=== PATIENT | male | born 1930 | race Two or more races ===

== ENCOUNTER 2016-03-12 06:18 | Inpatient (IN) | payer MEDICARE ==
[~2016-03-12] VITALS: Ht 172.7 cm; Wt 75.4 kg
[~2016-03-12 06:18] MED LIST: ACID1TAB12 PO; AMLO5TAB2 PO; BUPR300T54 PO; DABI150C PO; FLUO-119 PO; FURO20TA4 PO; MACULAR PROTECT PO; METO2.5T2 PO; METO25TA6 PO; POTA20TA83 PO
[2016-03-12] MEDS ORDERED: NITROGLYCERIN PACKET 1 GM PACKET ONE (06:27)
[2016-03-12] MEDS ORDERED: FUROSEMIDE 40 MG/4 ML VIAL ONE (06:27)
[2016-03-12] MEDS ORDERED: FUROSEMIDE 40 MG/4 ML VIAL IV ONE (06:30)
[2016-03-12] MEDS ORDERED: NITROGLYCERIN PACKET 1 GM PACKET TD ONE (06:30)
[2016-03-12 06:50] LABS: BASOPHILS % (AUTO) 0.3 % (0.0-2.0); DIFF TOTAL % 100 %; EOSINOPHILS # (AUTO) 0.1 /CMM (0.0-0.7); EOSINOPHILS % (AUTO) 1.2 % (0.0-6.0); HEMATOCRIT 36 % (39-51); HEMOGLOBIN 11.9 g/dL (13.5-17.5); LYMPHOCYTES # (AUTO) 0.4 /CMM (0.8-4.8); LYMPHOCYTES % (AUTO) 3.6 % (20.0-44.0); MEAN CORPUSCULAR HEMOGLOBIN 30 PG (26.0-33.0); MEAN CORPUSCULAR HGB CONC 33 g/dl (31.0-36.0); MEAN CORPUSCULAR VOLUME 90 fL (80-96); MONOCYTES # (AUTO) 1.1 /CMM (0.1-1.30); MONOCYTES % (AUTO) 10.5 % (2.0-12.0); NEUTROPHILS # (AUTO) 8.5 /CMM (1.8-8.9); NEUTROPHILS % (AUTO) 84.4 % (43.0-81.0); PLATELET COUNT (AUTO) 233 /CMM (150-450); RED BLOOD CELL COUNT(AUTO) 3.96 MIL/uL (4.5-6.0); WHITE BLOOD COUNT (AUTO) 10.1 K/uL (4.3-11.0)
[2016-03-12 07:04] LABS: CALCIUM, SERUM 8.6 mg/dL (8.5-10.1); CREATININE 1.2 mg/dL (0.6-1.3); POTASSIUM 3.9 mmol/L (3.5-5.1)
[2016-03-12 07:13] LABS: INR 1.12 (0.87-1.13); PROTHROMBIN TIME 12.1 SECS (9.5-12.7)
[2016-03-12 07:14] LABS: TROPONIN I 0.039 ng/mL (0.00-0.056)
[2016-03-12 07:17] LABS: ALBUMIN 3.5 g/dL (3.4-5.0); BILIRUBIN,DIRECT 0.1 mg/dL (0.0-0.2); BILIRUBIN,TOTAL 0.4 mg/dL (0.2-1.0); INDIRECT BILIRUBIN 0.3 mg/dL (0.0-1.1); TOTAL PROTEIN, SERUM 6.9 g/dL (6.4-8.2)
[2016-03-12] MEDS ORDERED: ALBUTEROL FS 2.5 MG/3 ML VIAL.NEB ONE (07:50)
[2016-03-12] MEDS ORDERED: IPRATROPIUM NEB FS 0.5 MG/2.5 ML AMPUL.NEB ONE (07:50)
[2016-03-12] MEDS ORDERED: ALBUTEROL FS 2.5 MG/3 ML VIAL.NEB NEB ONE (08:00)
[2016-03-12] MEDS ORDERED: IPRATROPIUM NEB FS 0.5 MG/2.5 ML AMPUL.NEB NEB ONE (08:00)
[2016-03-12 09:00] VITALS: BP 127/62
[2016-03-12] MEDS ORDERED: ONDANSETRON HCL/PF 4 MG/2 ML VIAL IVP PRN (10:00)
[2016-03-12] MEDS ORDERED: MORPHINE SULFATE INJ 2 MG/ML DISP.SYRIN IV PRN (10:00)
[2016-03-12] MEDS ORDERED: METOLAZONE 2.5 MG TABLET PO PRN (10:00)
[2016-03-12] MEDS ORDERED: ACETAMINOPHEN 325 MG TABLET PO PRN (10:00)
[2016-03-12] MEDS ORDERED: ZOLPIDEM TARTRATE 5 MG TABLET PO PRN (10:00)
[2016-03-12] MEDS ORDERED: IV SET PRIMARY PUMP SET 1 EA INFUS.SET MC ONE ×2 (10:42→20:53)
[2016-03-12] MEDS: POTASSIUM CHLORIDE 20 MEQ TAB.PRT.SR PO SCH (10:48)
[2016-03-12] MEDS: BUPROPION XL 150 MG TAB.ER.24 PO SCH (10:49)
[2016-03-12] MEDS: AMLODIPINE BESYLATE 5 MG TABLET PO SCH (10:49)
[2016-03-12] MEDS: Fluoxetine 10 mg capsule PO SCH (10:49)
[2016-03-12] MEDS: METOPROLOL TARTRATE 25 MG TABLET PO SCH ×2 (10:49→16:51)
[2016-03-12] MEDS ORDERED: BUMETANIDE INJ 4 MG in IV NS 0.9% 24 ML IV ONE (11:00)
[2016-03-12 12:00] VITALS: BP 100/55
[2016-03-12] MEDS ORDERED: MENTHOL/CETYLPYRD (CEPACOL) 1 LOZ LOZENGE PO PRN (14:30)
[2016-03-12 16:00] VITALS: BP 107/66
[2016-03-12] MEDS: FUROSEMIDE 20 MG TABLET PO SCH (16:51)
[2016-03-12] MEDS: DABIGATRAN ETEXILATE MESYLATE 150 MG CAPSULE PO SCH (16:51)
[2016-03-12] MEDS ORDERED: AZITHROMYCIN 500 MG in IV D5W 250 ML IV SCH (19:30)
[2016-03-12] MEDS ORDERED: DEXAMETHASONE SOD PHOSPHATE 10 MG/ML VIAL IV ONE (19:30)
[2016-03-12] MEDS ORDERED: CEFTRIAXONE 1 G in IV D5W 50 ML IV SCH (19:30)
[2016-03-12 20:00] VITALS: BP 104/55
[2016-03-12] MEDS ORDERED: CEFTRIAXONE 1 G VIAL ONE (20:37)
[2016-03-12] MEDS ORDERED: IV D5W 50 ML IV ONE (20:41)
[2016-03-12] MEDS ORDERED: IV NS 0.9% 250 ML IV ONE (20:53)
[2016-03-12] MEDS ORDERED: SECONDARY IV SET 1 EA INFUS.SET MC ONE ×2 (20:53→22:23)
[2016-03-12] MEDS: DEXAMETHASONE SOD PHOSPHATE 4 MG/ML VIAL ONE ×2 (21:11→21:16)
[2016-03-12] MEDS ORDERED: IV NS 0.9% 250 ML IV PRN (21:30)
[2016-03-12] MEDS ORDERED: AZITHROMYCIN 500 MG VIAL ONE (21:54)
[2016-03-12] MEDS ORDERED: IV D5W 250 ML IV ONE (22:22)
[2016-03-13] VITALS: BP 108/66
[2016-03-13 04:00] VITALS: BP 110/63
[2016-03-13 06:38] LABS: DIFF TOTAL % 100 %; HEMATOCRIT 33 % (39-51); HEMOGLOBIN 11.3 g/dL (13.5-17.5); LYMPHOCYTES # (AUTO) 0.2 /CMM (0.8-4.8); LYMPHOCYTES % (AUTO) 3.2 % (20.0-44.0); MEAN CORPUSCULAR HEMOGLOBIN 30 PG (26.0-33.0); MEAN CORPUSCULAR HGB CONC 34 g/dl (31.0-36.0); MEAN CORPUSCULAR VOLUME 90 fL (80-96); MONOCYTES # (AUTO) 0.2 /CMM (0.1-1.30); MONOCYTES % (AUTO) 2.7 % (2.0-12.0); NEUTROPHILS # (AUTO) 6.4 /CMM (1.8-8.9); NEUTROPHILS % (AUTO) 94.1 % (43.0-81.0); PLATELET COUNT (AUTO) 203 /CMM (150-450); RED BLOOD CELL COUNT(AUTO) 3.72 MIL/uL (4.5-6.0); WHITE BLOOD COUNT (AUTO) 6.9 K/uL (4.3-11.0)
[2016-03-13 07:10] LABS: BILIRUBIN,TOTAL 0.5 mg/dL (0.2-1.0); CALCIUM, SERUM 8.3 mg/dL (8.5-10.1); CREATININE 1.2 mg/dL (0.6-1.3); PHOSPHORUS 3.2 mg/dL (2.5-4.9); POTASSIUM 3.3 mmol/L (3.5-5.1); TOTAL PROTEIN, SERUM 6.4 g/dL (6.4-8.2)
[2016-03-13 07:37] LABS: THYROID STIMULATING HORMONE 1.141 uIU/mL (0.358-3.74)
[2016-03-13 08:00] VITALS: BP 109/72
[2016-03-13] MEDS: DABIGATRAN ETEXILATE MESYLATE 150 MG CAPSULE PO SCH (08:30)
[2016-03-13] MEDS: FUROSEMIDE 20 MG TABLET PO SCH (08:30)
[2016-03-13] MEDS: Fluoxetine 10 mg capsule PO SCH (08:31)
[2016-03-13] MEDS: AMLODIPINE BESYLATE 5 MG TABLET PO SCH (08:31)
[2016-03-13] MEDS: POTASSIUM CHLORIDE 20 MEQ TAB.PRT.SR PO SCH (08:31)
[2016-03-13] MEDS: BUPROPION XL 150 MG TAB.ER.24 PO SCH (08:31)
[2016-03-13] MEDS: METOPROLOL TARTRATE 25 MG TABLET PO SCH (08:32)
[2016-03-13] MEDS: ALBUTEROL FS 2.5 MG/0.5 ML VIAL.NEB NEB SCH ×4 (08:47→14:39)
[2016-03-13] MEDS: IPRATROPIUM NEB FS 0.5 MG/2.5 ML AMPUL.NEB NEB SCH ×4 (08:47→14:39)
[2016-03-13] MEDS ORDERED: ACIDOPHILUS/BULGARICUS 1 EACH TAB.CHEW PO SCH (09:00)
[2016-03-13 12:00] VITALS: BP 118/62
[2016-03-13] MEDS ORDERED: DOXY100C41 PO (13:40)
[2016-03-13] MEDS ORDERED: POTASSIUM CHLORIDE 20 MEQ TAB.PRT.SR PO SCH (15:30)
[2016-03-13] MEDS ORDERED: POTASSIUM CHLORIDE 20 MEQ TAB.PRT.SR PO ONE (15:30)
[2016-03-14] MEDS ORDERED: MULT-1152 PO (13:17)
[2016-03-14] MEDS ORDERED: SACU1TAB PO (17:02)
== END 2016-03-13 16:09 | disposition home or self-care (01) | DRG 291 ==
LOC: ER 06:20 → TELE1 08:18
PROVIDERS: ADMIT Nurse Practitioner Acute Care; ATTEND Nurse Practitioner Acute Care
DX: I11.0 Hypertensive heart disease with heart failure (principal); N17.0 Acute kidney failure with tubular necrosis; D68.59 Other primary thrombophilia; E78.5 Hyperlipidemia, unspecified; I25.10 Atherosclerotic heart disease of native coronary artery without angina pectoris; I48.91 Unspecified atrial fibrillation; I50.33 Acute on chronic diastolic (congestive) heart failure; J44.9 Chronic obstructive pulmonary disease, unspecified; Z87.891 Personal history of nicotine dependence; J40 Bronchitis, not specified as acute or chronic
CPT/HCPCS: 36415; 71010-TC; 80048-TC; 80053-TC; 80061-TC; 80076-TC; 83735-TC; 83880; 84100-TC; 84443-TC; 84484-TC; 85025-TC; 85730-TC; 87081-TC; 93307-TC; 94799-TC; A4606; J0456; J0696; J1100; J1940; J3490; J7030; J7050; J7060; Z7610

== ENCOUNTER 2016-03-14 10:21 | Inpatient (IN) | payer MEDICARE ==
[~2016-03-14] VITALS: Ht 172.7 cm; Wt 78.0 kg
[~2016-03-14 10:21] MED LIST changes: +DOXY100C41 PO
[2016-03-14 11:12] LABS: CALCIUM, SERUM 8.8 mg/dL (8.5-10.1); CREATININE 1.1 mg/dL (0.6-1.3); POTASSIUM 3.8 mmol/L (3.5-5.1)
[2016-03-14 11:15] LABS: INR 1.31 (0.87-1.13); PROTHROMBIN TIME 13.8 SECS (9.5-12.7)
[2016-03-14 11:16] LABS: BASOPHILS % (AUTO) 0.2 % (0.0-2.0); DIFF TOTAL % 100 %; EOSINOPHILS # (AUTO) 0.1 /CMM (0.0-0.7); EOSINOPHILS % (AUTO) 0.9 % (0.0-6.0); HEMATOCRIT 39 % (39-51); LYMPHOCYTES # (AUTO) 0.6 /CMM (0.8-4.8); LYMPHOCYTES % (AUTO) 4.9 % (20.0-44.0); MEAN CORPUSCULAR HEMOGLOBIN 30 PG (26.0-33.0); MEAN CORPUSCULAR HGB CONC 33 g/dl (31.0-36.0); MEAN CORPUSCULAR VOLUME 89 fL (80-96); MONOCYTES # (AUTO) 1.6 /CMM (0.1-1.30); MONOCYTES % (AUTO) 12.8 % (2.0-12.0); NEUTROPHILS # (AUTO) 9.9 /CMM (1.8-8.9); NEUTROPHILS % (AUTO) 81.2 % (43.0-81.0); PLATELET COUNT (AUTO) 230 /CMM (150-450); RED BLOOD CELL COUNT(AUTO) 4.39 MIL/uL (4.5-6.0); WHITE BLOOD COUNT (AUTO) 12.2 K/uL (4.3-11.0)
[2016-03-14 11:19] LABS: TROPONIN I 0.061 ng/mL (0.00-0.056)
[2016-03-14] MEDS ORDERED: MULT-1152 PO (13:17)
[2016-03-14] MEDS ORDERED: ONDANSETRON HCL/PF 4 MG/2 ML VIAL IVP PRN (14:00)
[2016-03-14] MEDS ORDERED: FUROSEMIDE 40 MG/4 ML VIAL IV SCH (14:00)
[2016-03-14] MEDS ORDERED: HYDROCODONE/APAP 5/325MG 1 EACH TABLET PO PRN (14:00)
[2016-03-14] MEDS ORDERED: METOLAZONE 2.5 MG TABLET PO PRN (14:00)
[2016-03-14] MEDS ORDERED: ACETAMINOPHEN 325 MG TABLET PO PRN (14:00)
[2016-03-14] MEDS ORDERED: MAG HYDROX/AL HYDROX/SIMETH 30 ML UDC PO PRN (14:00)
[2016-03-14] MEDS ORDERED: Z GUARD REMEDY 2 OZ OINT TP PRN (14:00)
[2016-03-14] MEDS: ALBUTEROL FS 2.5 MG/0.5 ML VIAL.NEB NEB SCH ×3 (15:22→23:44)
[2016-03-14] MEDS: IPRATROPIUM NEB FS 0.5 MG/2.5 ML AMPUL.NEB NEB SCH ×3 (15:22→23:44)
[2016-03-14 16:00] VITALS: BP 125/78
[2016-03-14] MEDS: methylPREDNISolone SOD SUCC 40 MG/ML VIAL IV SCH (16:16)
[2016-03-14] MEDS: FUROSEMIDE 40 MG/4 ML VIAL IV SCH (16:20)
[2016-03-14] MEDS: METOPROLOL TARTRATE 25 MG TABLET PO SCH (16:24)
[2016-03-14] MEDS: DABIGATRAN ETEXILATE MESYLATE 150 MG CAPSULE PO SCH (16:24)
[2016-03-14] MEDS ORDERED: SACU1TAB PO (17:02)
[2016-03-14 18:00] VITALS: BP 123/76
[2016-03-14 20:00] VITALS: BP 132/66
[2016-03-14 22:00] VITALS: BP 132/66
[2016-03-15] VITALS (7 sets, daily range): BP systolic 13–130; BP diastolic 66–85
[2016-03-15] MEDS: ALBUTEROL FS 2.5 MG/0.5 ML VIAL.NEB NEB SCH ×6 (04:17→23:30)
[2016-03-15] MEDS: IPRATROPIUM NEB FS 0.5 MG/2.5 ML AMPUL.NEB NEB SCH ×6 (04:17→23:30)
[2016-03-15 07:20] LABS: DIFF TOTAL % 100 %; HEMATOCRIT 36 % (39-51); LYMPHOCYTES # (AUTO) 0.4 /CMM (0.8-4.8); LYMPHOCYTES % (AUTO) 4.3 % (20.0-44.0); MEAN CORPUSCULAR HEMOGLOBIN 30 PG (26.0-33.0); MEAN CORPUSCULAR HGB CONC 34 g/dl (31.0-36.0); MEAN CORPUSCULAR VOLUME 90 fL (80-96); MONOCYTES # (AUTO) 0.8 /CMM (0.1-1.30); NEUTROPHILS # (AUTO) 7.4 /CMM (1.8-8.9); NEUTROPHILS % (AUTO) 86.7 % (43.0-81.0); PLATELET COUNT (AUTO) 209 /CMM (150-450); RED BLOOD CELL COUNT(AUTO) 3.95 MIL/uL (4.5-6.0); WHITE BLOOD COUNT (AUTO) 8.6 K/uL (4.3-11.0)
[2016-03-15 07:54] LABS: ALBUMIN 3.1 g/dL (3.4-5.0); BILIRUBIN,TOTAL 0.4 mg/dL (0.2-1.0); CALCIUM, SERUM 8.5 mg/dL (8.5-10.1); CREATININE 1.1 mg/dL (0.6-1.3); PHOSPHORUS 3.4 mg/dL (2.5-4.9); POTASSIUM 3.5 mmol/L (3.5-5.1); TOTAL PROTEIN, SERUM 6.6 g/dL (6.4-8.2)
[2016-03-15] MEDS: methylPREDNISolone SOD SUCC 40 MG/ML VIAL IV SCH ×3 (08:40→16:29)
[2016-03-15] MEDS: ACIDOPHILUS/BULGARICUS 1 EACH TAB.CHEW PO SCH (08:40)
[2016-03-15] MEDS: FUROSEMIDE 40 MG/4 ML VIAL IV SCH ×2 (08:40→16:29)
[2016-03-15] MEDS: PANTOPRAZOLE 40 MG TABLET.DR PO SCH (08:40)
[2016-03-15] MEDS: BUPROPION XL 150 MG TAB.ER.24 PO SCH (08:40)
[2016-03-15] MEDS: AMLODIPINE BESYLATE 5 MG TABLET PO SCH (08:41)
[2016-03-15] MEDS: Fluoxetine 10 mg capsule PO SCH (08:41)
[2016-03-15] MEDS: POTASSIUM CHLORIDE 20 MEQ TAB.PRT.SR PO SCH (08:41)
[2016-03-15] MEDS: DABIGATRAN ETEXILATE MESYLATE 150 MG CAPSULE PO SCH ×2 (08:42→16:29)
[2016-03-15] MEDS: MULTIVITAMINS W-MINERALS 1 TAB TABLET PO SCH (08:42)
[2016-03-15] MEDS: METOPROLOL TARTRATE 25 MG TABLET PO SCH ×2 (08:42→16:31)
[2016-03-16] VITALS (7 sets, daily range): BP systolic 109–141; BP diastolic 58–86
[2016-03-16] MEDS: ZOLPIDEM TARTRATE 5 MG TABLET PO PRN (00:14)
[2016-03-16] MEDS: ALBUTEROL FS 2.5 MG/0.5 ML VIAL.NEB NEB SCH ×6 (03:30→23:33)
[2016-03-16] MEDS: IPRATROPIUM NEB FS 0.5 MG/2.5 ML AMPUL.NEB NEB SCH ×6 (03:30→23:33)
[2016-03-16] MEDS: DABIGATRAN ETEXILATE MESYLATE 150 MG CAPSULE PO SCH ×2 (09:01→16:28)
[2016-03-16] MEDS: ACIDOPHILUS/BULGARICUS 1 EACH TAB.CHEW PO SCH (09:01)
[2016-03-16] MEDS: Fluoxetine 10 mg capsule PO SCH (09:01)
[2016-03-16] MEDS: MULTIVITAMINS W-MINERALS 1 TAB TABLET PO SCH (09:01)
[2016-03-16] MEDS: methylPREDNISolone SOD SUCC 40 MG/ML VIAL IV SCH ×2 (09:02→16:28)
[2016-03-16] MEDS: AMLODIPINE BESYLATE 5 MG TABLET PO SCH (09:02)
[2016-03-16] MEDS: BUPROPION XL 150 MG TAB.ER.24 PO SCH (09:02)
[2016-03-16] MEDS: POTASSIUM CHLORIDE 20 MEQ TAB.PRT.SR PO SCH (09:02)
[2016-03-16] MEDS: PANTOPRAZOLE 40 MG TABLET.DR PO SCH (09:03)
[2016-03-16] MEDS: FUROSEMIDE 40 MG/4 ML VIAL IV SCH (09:03)
[2016-03-16] MEDS: METOPROLOL TARTRATE 25 MG TABLET PO SCH ×2 (10:10→16:28)
[2016-03-17] VITALS: BP_SYST 119; BP_SYST 130; BP_DIAS 60; BP_DIAS 75
[2016-03-17] MEDS: ZOLPIDEM TARTRATE 5 MG TABLET PO PRN (00:41)
[2016-03-17] MEDS: ALBUTEROL FS 2.5 MG/0.5 ML VIAL.NEB NEB SCH ×4 (03:40→15:12)
[2016-03-17] MEDS: IPRATROPIUM NEB FS 0.5 MG/2.5 ML AMPUL.NEB NEB SCH ×4 (03:40→15:12)
[2016-03-17 08:00] VITALS: BP 122/71
[2016-03-17 08:01] LABS: DIFF TOTAL % 100 %; HEMATOCRIT 36 % (39-51); LYMPHOCYTES # (AUTO) 0.5 /CMM (0.8-4.8); LYMPHOCYTES % (AUTO) 3.5 % (20.0-44.0); MEAN CORPUSCULAR HEMOGLOBIN 30 PG (26.0-33.0); MEAN CORPUSCULAR HGB CONC 33 g/dl (31.0-36.0); MEAN CORPUSCULAR VOLUME 90 fL (80-96); MONOCYTES % (AUTO) 7.4 % (2.0-12.0); NEUTROPHILS # (AUTO) 12.4 /CMM (1.8-8.9); NEUTROPHILS % (AUTO) 89.1 % (43.0-81.0); PLATELET COUNT (AUTO) 253 /CMM (150-450); RED BLOOD CELL COUNT(AUTO) 3.99 MIL/uL (4.5-6.0); WHITE BLOOD COUNT (AUTO) 13.9 K/uL (4.3-11.0)
[2016-03-17 08:08] LABS: CALCIUM, SERUM 8.8 mg/dL (8.5-10.1)
[2016-03-17] MEDS: POTASSIUM CHLORIDE 20 MEQ TAB.PRT.SR PO SCH (08:19)
[2016-03-17] MEDS: DABIGATRAN ETEXILATE MESYLATE 150 MG CAPSULE PO SCH (08:19)
[2016-03-17] MEDS: ACIDOPHILUS/BULGARICUS 1 EACH TAB.CHEW PO SCH (08:19)
[2016-03-17] MEDS: MULTIVITAMINS W-MINERALS 1 TAB TABLET PO SCH (08:19)
[2016-03-17 08:20] VITALS: BP 122/71
[2016-03-17] MEDS: METOPROLOL TARTRATE 25 MG TABLET PO SCH (08:20)
[2016-03-17] MEDS: methylPREDNISolone SOD SUCC 40 MG/ML VIAL IV SCH (08:20)
[2016-03-17] MEDS: AMLODIPINE BESYLATE 5 MG TABLET PO SCH (08:20)
[2016-03-17] MEDS: PANTOPRAZOLE 40 MG TABLET.DR PO SCH (08:20)
[2016-03-17] MEDS: Fluoxetine 10 mg capsule PO SCH (08:20)
[2016-03-17] MEDS: BUPROPION XL 150 MG TAB.ER.24 PO SCH (08:21)
[2016-03-17] MEDS ORDERED: FUROSEMIDE 40 MG TABLET PO SCH (09:00)
[2016-03-17] MEDS ORDERED: PNEUMOCOCCAL 23-VAL P-SAC VAC 0.5 ML VIAL SQ ONE (12:30)
== END 2016-03-17 15:49 | disposition home health service (06) | DRG 280 ==
LOC: ER 10:23 → TELE 13:41 → MED 03-17 10:53
PROVIDERS: ADMIT Internal Medicine; ATTEND Internal Medicine
DX: I11.0 Hypertensive heart disease with heart failure (principal); I21.4 Non-ST elevation (NSTEMI) myocardial infarction; J96.01 Acute respiratory failure with hypoxia; D68.59 Other primary thrombophilia; J44.1 Chronic obstructive pulmonary disease with (acute) exacerbation; J44.0 Chronic obstructive pulmonary disease with (acute) lower respiratory infection; J20.9 Acute bronchitis, unspecified; I50.33 Acute on chronic diastolic (congestive) heart failure; J44.9 Chronic obstructive pulmonary disease, unspecified; D72.829 Elevated white blood cell count, unspecified; E78.5 Hyperlipidemia, unspecified; I48.2 Chronic atrial fibrillation; Z87.891 Personal history of nicotine dependence
CPT/HCPCS: 36415; 71010-TC; 80048-TC; 80053-TC; 80061-TC; 83735-TC; 83880; 84100-TC; 84484-TC; 85025-TC; 85730-TC; 87081-TC; 90732; 94799-TC; A4606; J1940; J2920; Z7610

== ENCOUNTER 2016-10-04 16:14 | Emergency (ER) | payer MEDICARE ==
[~2016-10-04] VITALS: Ht 172.7 cm; Wt 77.1 kg
[~2016-10-04 16:14] MED LIST changes: -MACULAR PROTECT PO; +MULT-1152 PO; +SACU1TAB PO
[2016-10-04 16:18] VITALS: BP 117/64
== END 2016-10-04 17:58 | disposition home or self-care (01) ==
LOC: ER 16:17
DX: S63.502A Unspecified sprain of left wrist, initial encounter (principal); I11.0 Hypertensive heart disease with heart failure; I48.91 Unspecified atrial fibrillation; I50.9 Heart failure, unspecified; Z79.01 Long term (current) use of anticoagulants; Z87.891 Personal history of nicotine dependence; W01.0XXA Fall on same level from slipping, tripping and stumbling without subsequent striking against object, initial encounter; Y92.89 Other specified places as the place of occurrence of the external cause; Y93.89 Activity, other specified; Y99.8 Other external cause status
CPT/HCPCS: 73110; 73130-TC; A4606; Z7610

== ENCOUNTER 2018-06-04 07:08 | Inpatient (IN) | payer MEDICARE ==
[~2018-06-04] VITALS: Ht 172.7 cm; Wt 75.7 kg
[~2018-06-04 07:08] MED LIST changes: -AMLO5TAB2 PO; +AMLO5TAB9 PO
--- NOTE | 2018-06-04 07:34 | NUR ---
patient presneted to the ER bibRA 102, c/o SOB x 2 days and worst today. On 02 @ 2lpm via NC 100% 02 sat. Denies any pain at this time. Connected to the monitor and pulse ox. Kept comfortable, will continue to monitor accordingly.
[2018-06-04 07:41] LABS: BASOPHILS % (AUTO) 0.3 % (0.0-2.0); EOSINOPHILS % (AUTO) 0.3 % (0.0-6.0); HEMATOCRIT 30 % (39-51); HEMOGLOBIN 9.8 g/dL (13.5-17.5); LYMPHOCYTES # (AUTO) 0.4 /CMM (0.8-4.8); LYMPHOCYTES % (AUTO) 4.1 % (20.0-44.0); MEAN CORPUSCULAR HGB CONC 33 g/dl (31.0-36.0); MEAN CORPUSCULAR VOLUME 90 fL (80-96); MONOCYTES % (AUTO) 9.4 % (2.0-12.0); NEUTROPHILS # (AUTO) 9.2 /CMM (1.8-8.9); NEUTROPHILS % (AUTO) 85.9 % (43.0-81.0); PLATELET COUNT (AUTO) 191 /CMM (150-450); RED BLOOD CELL COUNT(AUTO) 3.29 MIL/uL (4.5-6.0); WHITE BLOOD COUNT (AUTO) 10.7 K/uL (4.3-11.0)
[2018-06-04] MEDS ORDERED: VENL75CA62 PO (07:49)
[2018-06-04 07:55] LABS: CALCIUM, SERUM 8.7 mg/dL (8.5-10.1); CARBON DIOXIDE 26 mmol/L (21-32); CHLORIDE 108 mmol/L (98-107); CREATININE 1.2 mg/dL (0.6-1.3); GLUCOSE 114 mg/dL (74-106); POTASSIUM 3.9 mmol/L (3.5-5.1); SODIUM SERUM 143 mmol/L (136-145); UREA NITROGEN, BLOOD 38 mg/dL (7-18)
[2018-06-04] MEDS ORDERED: ASPIRIN 325 MG TABLET PO ONE (08:00)
[2018-06-04 08:02] LABS: ALANINE AMINOTRANSFERASE 27 U/L (12-78); ALBUMIN 3.5 g/dL (3.4-5.0); ALKALINE PHOSPHATASE 88 U/L (46-116); ASPARTATE AMINOTRANSFERASE 22 U/L (15-37); B-TYPE NATRIURETIC PEPTIDE 6464 PG/ML (0-125); BILIRUBIN,DIRECT 0.2 mg/dL (0.0-0.2); BILIRUBIN,TOTAL 0.7 mg/dL (0.2-1.0); TOTAL PROTEIN, SERUM 6.8 g/dL (6.4-8.2)
[2018-06-04] MEDS ORDERED: ASPIRIN 325 MG TABLET ONE (08:08)
--- NOTE | 2018-06-04 08:12 | NUR ---
CALLED [facility]
--- NOTE | 2018-06-04 08:13 | NUR ---
CALLED FOR A TELE BED
[2018-06-04] MEDS ORDERED: FUROSEMIDE 20 MG/2 ML VIAL IV ONE (08:30)
[2018-06-04] MEDS ORDERED: FUROSEMIDE 20 MG/2 ML VIAL ONE (08:39)
--- NOTE | 2018-06-04 09:12 | NUR ---
Report given to Nelly SUMNER for citlaly.
[2018-06-04 10:00] VITALS: BP 113/57
--- NOTE | 2018-06-04 10:00 | NUR ---
RECEIVED PATIENT A/O X4 , ON OT 2L VIA NC, SATURATING 100%. VS ARE STABLE , PT ADMITTED TO TELE, A-FIB WITH HR 102-109. PT HAS HX CHRONIC A-FIB.COMFORTABLY PLACES IN THE BED AND ORIENTED TO ROOM AND UNIT. SKIN INTACT. BELONGINGS REVIEWED ( MONOGRAM AND LETTER PASTER AND KEYS): VALUABLE FORM SIGHED , PATIENT REFUSED TO LOCKED HIS MONOGRAM AND LETTER PASTER AND WANTS IT AT BEDSIDE. SAFETY PRECAUTIONS IN PLACE , CALL LIGHT WITHIN REACH. PT EDUCATED TO USE CALL LIGHT FOR ASSISTANCE. AWAITING FOR AD M.ORDERS.
[2018-06-04] MEDS ORDERED: DABIGATRAN ETEXILATE MESYLATE 150 MG CAPSULE PO ONE (11:30)
[2018-06-04] MEDS ORDERED: METOLAZONE 2.5 MG TABLET PO PRN (11:30)
[2018-06-04 11:57] LABS: IRON, SERUM 23 ug/dl (50-175); TOTAL IRON BINDING CAPACITY 282 ug/dl (250-450)
[2018-06-04 12:00] VITALS: BP 133/89
[2018-06-04 12:12] LABS: FERRITIN 39 ng/mL (8-388)
[2018-06-04] MEDS ORDERED: ENOXAPARIN SODIUM 40 MG/0.4 ML DISP.SYRIN SQ SCH (12:30)
[2018-06-04] MEDS ORDERED: ONDANSETRON HCL/PF 4 MG/2 ML VIAL IVP PRN (12:30)
[2018-06-04] MEDS ORDERED: BUMETANIDE INJ 4 MG in IV NS 0.9% 24 ML IV ONE (12:30)
[2018-06-04] MEDS ORDERED: Z GUARD REMEDY 2 OZ OINT TP PRN (12:30)
[2018-06-04] MEDS ORDERED: FUROSEMIDE 20 MG TABLET PO SCH (13:00)
[2018-06-04] MEDS: ACIDOPHILUS/BULGARICUS 1 EACH TAB.CHEW PO SCH (13:36)
[2018-06-04] MEDS: AMLODIPINE BESYLATE 5 MG TABLET PO SCH (13:37)
[2018-06-04] MEDS: VENLAFAXINE XR 75 MG CAP.SR.24H PO SCH (13:39)
[2018-06-04] MEDS: FUROSEMIDE 40 MG/4 ML VIAL IV SCH ×2 (13:40→15:30)
[2018-06-04] MEDS: POTASSIUM CHLORIDE 20 MEQ TAB.PRT.SR PO SCH (13:40)
[2018-06-04] MEDS: METOPROLOL TARTRATE 25 MG TABLET PO SCH ×2 (13:43→17:08)
--- NOTE | 2018-06-04 15:10 | NUR ---
PATIENT PICKED UP FOR PROCEDURE BY RADIOLOGY STAFF.
[2018-06-04] MEDS: ALBUTEROL HALF STRENGTH 1.25 MG/3 ML VIAL.NEB NEB SCH ×2 (15:30→20:45)
[2018-06-04] MEDS: IPRATROPIUM NEB FS 0.5 MG/2.5 ML AMPUL.NEB NEB SCH ×2 (15:30→20:45)
[2018-06-04 16:00] VITALS: BP 116/64
[2018-06-04] MEDS ORDERED: CT SWABBABLE VALVE TRANS SET 1 EA INFUS.SET MC ONE (16:13)
[2018-06-04] MEDS ORDERED: IOHEXOL-350 100 ML VIAL IV ONE (16:13)
[2018-06-04] MEDS ORDERED: IV NS 0.9% 250 ML IV ONE (16:13)
--- NOTE | 2018-06-04 16:42 | NUR ---
RT NOTE RN DIDN'T NOTIFY OF A NEW START.
[2018-06-04] MEDS: DABIGATRAN ETEXILATE MESYLATE 150 MG CAPSULE PO SCH (17:12)
--- NOTE | 2018-06-04 19:11 | NUR ---
PATIENT SITTING IN CHAIR, ON O2 2L VIA NC SATURATING WELL. NO SOB AT THIS TIME, PATIENT REPORTED THAT HE FEELS BETTER NOW. NOT IN ANY DISTRESS, VS ARE STABLE. ON TELE A-FIB HR 102-108. WILL ENDORSE TO NEXT SHIFT.
--- NOTE | 2018-06-04 19:30 | NUR ---
FLUX MIXER OPENING NOTES RECEIVED PATIENT IN BED AWAKE, ALERT AND ORIENTED X4, VERBALLY RESPONSIVE, ABLE TO MAKE NEEDS KNOWN. BREATHING EVEN AND UNLABORED. ON 2LPM OXYGEN VIA NC. TOLERATING WELL. O2SAT WNL. NO COMPLAINTS OF PAIN OR DISCOMFORT. NO FACIAL GRIMACING. IV ON RIGHT AC G#18 INTACT AND PATENT. SKIN DRY AND WARM TO TOUCH. AFEBRILE. ALL OTHER NEEDS ATTENDED TO. INSTRUCTED TO USE CALL LIGHT FOR ASSISTANCE. SAFETY MEASURES IN PLACE. CALL LIGHT WITHIN REACH. WILL CONTINUE TO MONITOR.
[2018-06-04 20:00] VITALS: BP 118/52
--- NOTE | 2018-06-04 23:43 | NUR ---
SURGICAL ELASTIC KNITTER HAND FRAME NOTES PATIENT COMPLAINED OF COUGH, NONPRODUCTIVE AND IN REQUESTING FOR A COUGH MEDICATION. PAGED DR. ROBERTSON AND INFORMED OF PATIENT'S REQUEST. PER DR. ROBERTSON, ROBITUSSIN 10ML PO Q4H PRN FOR COUGH. ORDER NOTED AND CARRIED OUT. WILL CONTINUE TO MONITOR.
[2018-06-04] MEDS: GUAIFENESIN/D-METHORPHAN HB 5 ML UDC PO PRN (23:50)
[2018-06-05] VITALS (7 sets, daily range): BP systolic 96–139; BP diastolic 50–71
--- NOTE | 2018-06-05 01:00 | NUR ---
LEAD CASE MANAGER NOTES PATIENT SITTING DOWN ON THE CHAIR. NO DISTRESS. HAD A COMPLAINT OF SOB BUT 02SAT WNL ON 2LPM OXYGEN. PATIENT STATES THAT HE GETS RELIEF AND FEELS MUCH BETTER SITTING DOWN. AFIB 100-110S ON TELE MONITOR. DENIES ANY CHEST PAIN, OR ANY OTHER PAIN. ALL NEEDS MET. INSTRUCTED TO USE CALL LIGHT FOR ASSISTANCE. WILL CONTINUE TO MONITOR.
[2018-06-05] MEDS: ALBUTEROL HALF STRENGTH 1.25 MG/3 ML VIAL.NEB NEB SCH ×4 (01:47→20:19)
[2018-06-05] MEDS: IPRATROPIUM NEB FS 0.5 MG/2.5 ML AMPUL.NEB NEB SCH ×4 (01:47→20:19)
[2018-06-05] MEDS: ACETAMINOPHEN 325 MG TABLET PO PRN ×2 (03:39→20:44)
[2018-06-05 06:24] LABS: BASOPHILS % (AUTO) 0.1 % (0.0-2.0); EOSINOPHILS % (AUTO) 0.2 % (0.0-6.0); HEMATOCRIT 27 % (39-51); HEMOGLOBIN 9.1 g/dL (13.5-17.5); LYMPHOCYTES # (AUTO) 0.3 /CMM (0.8-4.8); LYMPHOCYTES % (AUTO) 2.9 % (20.0-44.0); MEAN CORPUSCULAR HGB CONC 34 g/dl (31.0-36.0); MEAN CORPUSCULAR VOLUME 89 fL (80-96); MONOCYTES # (AUTO) 1.3 /CMM (0.1-1.30); MONOCYTES % (AUTO) 12.2 % (2.0-12.0); NEUTROPHILS % (AUTO) 84.6 % (43.0-81.0); PLATELET COUNT (AUTO) 180 /CMM (150-450); RED BLOOD CELL COUNT(AUTO) 3.06 MIL/uL (4.5-6.0); WHITE BLOOD COUNT (AUTO) 10.6 K/uL (4.3-11.0)
--- NOTE | 2018-06-05 06:35 | NUR ---
LABORER WOOD PRESERVING PLANT CLOSING NOTES PATIENT RESTING IN BED. NO ACUTE CHANGES THROUGHOUT SHIFT. BREATHING EVEN AND UNLABORED. NO DISTRESS. ON 2LPM OXYGEN VIA NC. TOLERATING WELL. O2SAT WNL. AFIB 90's ON TELE MONITOR. NO COMPLAINTS OF PAIN OR DISCOMFORT. NO FACIAL GRIMACING. IV ON RIGHT AC G#18 INTACT AND PATENT. SKIN DRY AND WARM TO TOUCH. AFEBRILE. ALL OTHER NEEDS ATTENDED TO. SAFETY MEASURES IN PLACE. CALL LIGHT WITHIN REACH. WILL ENDORSE TO ONCOMING NURSE FOR LOVE.
--- NOTE | 2018-06-05 06:44 | NUR ---
PRINTER MAINTAINER NOTES PATIENT APPEARS TO BE LOW ON THE BED BUT REFUSES TO BE REPOSITIONED. PATIENT IS INDEPENDENT WITH BED MOBILITY. NO DISTRESS.
[2018-06-05 06:57] LABS: ALANINE AMINOTRANSFERASE 26 U/L (12-78); ALBUMIN 3.1 g/dL (3.4-5.0); ALKALINE PHOSPHATASE 83 U/L (46-116); ASPARTATE AMINOTRANSFERASE 21 U/L (15-37); BILIRUBIN,TOTAL 0.8 mg/dL (0.2-1.0); CALCIUM, SERUM 8.6 mg/dL (8.5-10.1); CARBON DIOXIDE 24 mmol/L (21-32); CHLORIDE 106 mmol/L (98-107); GLUCOSE 100 mg/dL (74-106); MAGNESIUM 2.2 mg/dL (1.8-2.4); POTASSIUM 3.6 mmol/L (3.5-5.1); SODIUM SERUM 142 mmol/L (136-145); TOTAL PROTEIN, SERUM 6.4 g/dL (6.4-8.2); UREA NITROGEN, BLOOD 25 mg/dL (7-18)
[2018-06-05 06:59] LABS: CHOLESTEROL 116 mg/dL (<200); HDL CHOLESTEROL 56 mg/dL (40-60); LDL 60 mg/dL (0-99); TRIGLYCERIDES 44 mg/dL (30-150)
--- NOTE | 2018-06-05 07:50 | NUR ---
CONSULTING ENGINEER OPENING NOTES PATIENT A/O X4 AND ABLE TO MAKE NEEDS KNOWN. RESPIRATION EVEN AND UNLABORED WITH NO ACUTE RESPIRATORY DISTRESS, ON OXYGEN AT 3 LPM VIA NASAL CANNULA AND ABLE TO TOLERATE WELL. ABDOMEN SOFT AND NON DISTENDED WITH ACTIVE BOWEL SOUNDS. PATIENT DENIES PAIN AND DISCOMFORT. SKIN WARM TO TOUCH, INTACT AND DRY. PER TELE MONITOR OF SR WITH PVC OF 91-93. IV SITE ON RIGHT AC GAUGE 18 WITH NO S/SX OF INFILTRATION. PLACED CALL LIGHT WITHIN REACH TO ENSURE SAFETY. ALL CONCERNS ATTENDED WILL CONTINUE TO EVALUATE CARE.
[2018-06-05] MEDS: BUPROPION XL 150 MG TAB.ER.24 PO SCH (08:40)
[2018-06-05] MEDS: POTASSIUM CHLORIDE 20 MEQ TAB.PRT.SR PO SCH (08:40)
[2018-06-05] MEDS: METOPROLOL TARTRATE 25 MG TABLET PO SCH (08:40)
[2018-06-05] MEDS: VENLAFAXINE XR 75 MG CAP.SR.24H PO SCH (08:40)
[2018-06-05] MEDS: ACIDOPHILUS/BULGARICUS 1 EACH TAB.CHEW PO SCH (08:41)
[2018-06-05] MEDS: DABIGATRAN ETEXILATE MESYLATE 150 MG CAPSULE PO SCH ×2 (08:41→17:08)
[2018-06-05] MEDS: AMLODIPINE BESYLATE 5 MG TABLET PO SCH (08:41)
[2018-06-05] MEDS ORDERED: BUMETANIDE INJ 8 MG in IV NS 0.9% 48 ML IV ONE (09:00)
[2018-06-05] MEDS: MULTIVITAMIN/LUTEIN/MINERALS 1 TAB PO SCH (09:07)
--- NOTE | 2018-06-05 10:00 | NUR ---
TELE/RN SPOKE WITH DR CHAN AND MADE AWARE PATIENT NOTED WITH BP 100/60 MANUALLY CHECKED PRIOR TO STARTING BUMEX DRIP. PER DR DUSTIN STALEY AND NACHO FOR NOW AND CONTINUE BUMEX DRIP ORDERED, CONTINUE TO MONITOR BP WELL AND OKAY FOR PATIENT TO HAVE BP IN HIGH 80'S AND 90'S. PATIENT NOTIFIED.
--- NOTE | 2018-06-05 18:46 | NUR ---
M/S RN CLOSING NOTES PATIENT A/O X 4 AND ABLE TO MAKE NEEDS KNOWN. RESPIRATION EVEN AND NON LABORED WITH NO ACUTE RESPIRATORY DISTRESS, ON CONTINUOUS OXYGEN AT 3LPM VIA NASAL CANNULA AND TOLERATED WELL. ABDOMEN SOFT AND NON DISTENDED WITH ACTIVE SOUNDS. CONTINENT IN BOWEL AND BLADDER WITH URINAL ON BEDSIDE. SKIN WARM TO TOUCH, INTACT AND DRY. DENIES PAIN AND DISCOMFORT. IV SALINE LOCK SITE ON LEFT FOREARM ON GAUGE 22, SITE NO S/SX OF INFILTRATION. ALL CONCERNS ADDRESSED. PLACED CALL LIGHT WITHIN REACH FOR SAFETY. ENDORSED PATIENT CONDITION TO NEXT SHIFT.
--- NOTE | 2018-06-05 19:30 | NUR ---
rn initial notes: received report form day rn, pt sitting on a chair, on 3l oxygen via nc,respiration even and unlabored. per report pt easily got short of breath with activity. pt denies any pain or discomfort, iv access patent and flushing well, on hl. urinal within reach, bed side commode available. safety precautions for fall initiated, call light in reach, will continue monitoring pt.
[2018-06-05] MEDS: GUAIFENESIN/D-METHORPHAN HB 5 ML UDC PO PRN (20:44)
--- NOTE | 2018-06-05 20:49 | NUR ---
TYLENOL PRN GIVEN FOR RIGHT HIP PAIN PER PATIENT REQUEST. PATIENT RATES PAIN 310. COUGH MEDICINE ROBITUSSIN GIVEN PER PATIENT REQUEST.
--- NOTE | 2018-06-06 01:11 | NUR ---
RN NOTES: PT REQUESTED TO SIT ON A CHAIR, STATED HE;'S MORE COMFORTABLE TO STAY ON A CHAIR FOR TONIGHT
[2018-06-06] MEDS: ALBUTEROL HALF STRENGTH 1.25 MG/3 ML VIAL.NEB NEB SCH ×4 (02:18→20:04)
[2018-06-06] MEDS: IPRATROPIUM NEB FS 0.5 MG/2.5 ML AMPUL.NEB NEB SCH ×4 (02:19→20:04)
[2018-06-06 06:48] LABS: ALANINE AMINOTRANSFERASE 28 U/L (12-78); ALKALINE PHOSPHATASE 87 U/L (46-116); ASPARTATE AMINOTRANSFERASE 24 U/L (15-37); BILIRUBIN,TOTAL 0.7 mg/dL (0.2-1.0); CALCIUM, SERUM 8.3 mg/dL (8.5-10.1); CARBON DIOXIDE 27 mmol/L (21-32); CHLORIDE 103 mmol/L (98-107); CREATININE 1.1 mg/dL (0.6-1.3); GLUCOSE 91 mg/dL (74-106); MAGNESIUM 2.1 mg/dL (1.8-2.4); PHOSPHORUS 3.1 mg/dL (2.5-4.9); POTASSIUM 3.3 mmol/L (3.5-5.1); SODIUM SERUM 140 mmol/L (136-145); TOTAL PROTEIN, SERUM 6.5 g/dL (6.4-8.2); UREA NITROGEN, BLOOD 30 mg/dL (7-18)
[2018-06-06 06:59] LABS: BASOPHILS % (AUTO) 0.1 % (0.0-2.0); EOSINOPHILS % (AUTO) 0.6 % (0.0-6.0); HEMATOCRIT 27 % (39-51); HEMOGLOBIN 9.1 g/dL (13.5-17.5); LYMPHOCYTES # (AUTO) 0.4 /CMM (0.8-4.8); LYMPHOCYTES % (AUTO) 4.5 % (20.0-44.0); MEAN CORPUSCULAR HGB CONC 34 g/dl (31.0-36.0); MEAN CORPUSCULAR VOLUME 90 fL (80-96); MONOCYTES # (AUTO) 1.2 /CMM (0.1-1.30); MONOCYTES % (AUTO) 13.8 % (2.0-12.0); NEUTROPHILS # (AUTO) 7.1 /CMM (1.8-8.9); PLATELET COUNT (AUTO) 187 /CMM (150-450); RED BLOOD CELL COUNT(AUTO) 2.98 MIL/uL (4.5-6.0); WHITE BLOOD COUNT (AUTO) 8.8 K/uL (4.3-11.0)
--- NOTE | 2018-06-06 07:33 | NUR ---
RN CLOSING NOTES PATIENT IS IN BED, AWAKE. ON 3L OXYGEN VIA NASAL CANNULA. RESPIRATIONS EVEN AND UNLABORED. NO SIGNS OF RESPIRATORY DISTRESS. PATIENT DENIES PAIN OR DISCOMFORT AT THIS TIME. IV SITE PATENT AND FLUSHING WELL. URINAL WITHIN REACH. SAFETY PRECAUTIONS IMPLEMENTED. CALL LIGHT WITHIN REACH. WILL ENDORSE TO ONCOMING AM RN.
--- NOTE | 2018-06-06 07:41 | NUR ---
RN OPENING NOTES PT AWAKE AND SITTING IN CHAIR AT SIDE OF BED. NO COMPLAINTS OF PAIN OR DISTRESS AT THIS TIME. PER PATIENT IT HAS BECOME HARDER FOR THE PATIENT TO WALK AROUND FREELY WITHOUT FEELING SHORT OF BREATH. PT HAS LEFT FA #22 INTACT AND PATENT. SAFETY PRECAUTIONS IN PLACE, BED IN LOWEST LOCKED POSITION, X2 SIDE RAILS UP AND CALL LIGHT WITHIN REACH. WILL CONTINUE TO MONITOR.
[2018-06-06 08:00] VITALS: BP 98/53
[2018-06-06] MEDS ORDERED: POTASSIUM CHLORIDE 20 MEQ TAB.PRT.SR PO ONE (08:00)
[2018-06-06] MEDS: VENLAFAXINE XR 75 MG CAP.SR.24H PO SCH (08:58)
[2018-06-06] MEDS: POTASSIUM CHLORIDE 20 MEQ TAB.PRT.SR PO SCH (08:58)
[2018-06-06] MEDS: MULTIVITAMIN/LUTEIN/MINERALS 1 TAB PO SCH (08:58)
[2018-06-06] MEDS: ACIDOPHILUS/BULGARICUS 1 EACH TAB.CHEW PO SCH (08:58)
[2018-06-06] MEDS: BUPROPION XL 150 MG TAB.ER.24 PO SCH (08:59)
[2018-06-06] MEDS: DABIGATRAN ETEXILATE MESYLATE 150 MG CAPSULE PO SCH ×2 (09:17→16:53)
[2018-06-06] MEDS: predniSONE 20 MG TABLET PO SCH (10:40)
[2018-06-06] MEDS: ACETAMINOPHEN 325 MG TABLET PO PRN (10:44)
[2018-06-06] MEDS ORDERED: SOD FERRIC GLUC 125 MG in IV NS 0.9% 100 ML IV SCH (14:00)
[2018-06-06 16:00] VITALS: BP 117/62
--- NOTE | 2018-06-06 18:54 | NUR ---
RN CLOSING NOTES PT AWAKE AND SITTING IN CHAIR AT SIDE OF BED. NO COMPLAINTS OF PAIN OR DISTRESS AT THIS TIME. PT HAS LEFT FA #22 INTACT AND PATENT. ALL PATIENT NEEDS MET DURING SHIFT. STOOL SAMPLE NEEDED WILL ENDORSE TO AMPLIFIER MECHANIC NURSE. SAFETY PRECAUTIONS IN PLACE, BED IN LOWEST LOCKED POSITION, X2 SIDE RAILS UP AND CALL LIGHT WITHIN REACH. WILL ENDORSE TO AMPLIFIER MECHANIC NURSE FOR CONTINUITY OF CARE.
--- NOTE | 2018-06-06 19:30 | NUR ---
MS/RN RECEIVE PATIENT AWAKE, ALERT, COMFORTABLE NO C/O PAIN, NO DISTRESS NOTED, CALL LIGHT IN REACH. WILL MONITOR.
[2018-06-06 20:00] VITALS: BP 95/76
--- NOTE | 2018-06-07 00:59 | NUR ---
MS/RN PATIENT IS SLEEPING AT THIS TIME, AROUSABLE, APPEAR COMFORTABLE, NO SIGNS OF DISTRESS NOTED, CALL LIGHT IN REACH. WILL CONTINUE TO MONITOR.
[2018-06-07] MEDS: IPRATROPIUM NEB FS 0.5 MG/2.5 ML AMPUL.NEB NEB SCH ×3 (01:51→13:17)
[2018-06-07] MEDS: ALBUTEROL HALF STRENGTH 1.25 MG/3 ML VIAL.NEB NEB SCH ×3 (01:51→13:17)
--- NOTE | 2018-06-07 06:26 | NUR ---
MS/RN PATIENT IS AWAKE, ALERT, ORIENTED, SITTING ON THE CHAIR AT BEDSIDE, COMFORTABLE, NO C/O PAIN, NO DISTRESS NOTED, ALL NEEDS ATTENDED AT THIS TIME, WILL CONTINUE TO MONITOR.
[2018-06-07 06:34] LABS: BASOPHILS % (AUTO) 0.1 % (0.0-2.0); EOSINOPHILS % (AUTO) 0.1 % (0.0-6.0); HEMATOCRIT 27 % (39-51); HEMOGLOBIN 8.8 g/dL (13.5-17.5); LYMPHOCYTES # (AUTO) 0.3 /CMM (0.8-4.8); LYMPHOCYTES % (AUTO) 3.1 % (20.0-44.0); MEAN CORPUSCULAR HGB CONC 33 g/dl (31.0-36.0); MEAN CORPUSCULAR VOLUME 89 fL (80-96); MONOCYTES # (AUTO) 1.1 /CMM (0.1-1.30); MONOCYTES % (AUTO) 13.2 % (2.0-12.0); NEUTROPHILS # (AUTO) 6.8 /CMM (1.8-8.9); NEUTROPHILS % (AUTO) 83.5 % (43.0-81.0); PLATELET COUNT (AUTO) 209 /CMM (150-450); RED BLOOD CELL COUNT(AUTO) 2.98 MIL/uL (4.5-6.0); WHITE BLOOD COUNT (AUTO) 8.1 K/uL (4.3-11.0)
[2018-06-07 06:43] LABS: CALCIUM, SERUM 8.6 mg/dL (8.5-10.1); CARBON DIOXIDE 25 mmol/L (21-32); CHLORIDE 104 mmol/L (98-107); CREATININE 0.9 mg/dL (0.6-1.3); GLUCOSE 105 mg/dL (74-106); POTASSIUM 4.3 mmol/L (3.5-5.1); SODIUM SERUM 138 mmol/L (136-145); UREA NITROGEN, BLOOD 29 mg/dL (7-18)
--- NOTE | 2018-06-07 07:00 | NUR ---
RN OPENING NOTES PT AWAKE AND RESTING IN CHAIR AT BEDSIDE. NO COMPLAINTS OF PAIN, SOB OR DISTRESS AT THIS TIME. PT HAS A LEFT FA #22 IV INTACT AND PATENT. SAFETY PRECAUTIONS IN PLACE, BED IN LOWEST LOCKED POSITION, X2 SIDE RAILS UP AND CALL LIGHT WITHIN REACH. WILL CONTINUE TO MONITOR.
[2018-06-07 08:00] VITALS: BP 118/68
[2018-06-07] MEDS: BUPROPION XL 150 MG TAB.ER.24 PO SCH (08:44)
[2018-06-07] MEDS: MULTIVITAMIN/LUTEIN/MINERALS 1 TAB PO SCH (08:45)
[2018-06-07] MEDS: ACIDOPHILUS/BULGARICUS 1 EACH TAB.CHEW PO SCH (08:46)
[2018-06-07] MEDS: POTASSIUM CHLORIDE 20 MEQ TAB.PRT.SR PO SCH (08:46)
[2018-06-07] MEDS: predniSONE 20 MG TABLET PO SCH (08:46)
[2018-06-07] MEDS: VENLAFAXINE XR 75 MG CAP.SR.24H PO SCH (08:46)
[2018-06-07] MEDS: DABIGATRAN ETEXILATE MESYLATE 150 MG CAPSULE PO SCH (08:51)
[2018-06-07] MEDS ORDERED: METH4TAB3 PO (12:42)
[2018-06-07 13:30] VITALS: BP 129/60
--- NOTE | 2018-06-07 15:10 | NUR ---
MARKETING ANALYTICS SPECIALIST NOTES PT STABLE AT DISCHARGE. ALL PATIENT BELONGINGS TAKEN WITH PATIENT AT DISCHARGE. ALL PAPERWORK SIGNED, COPIED, AND GIVEN TO PATIENT. ALL PAPERWORK EXPLAINED. IV AND ID REMOVED BEFORE DISCHARGE. FAMILY ARRANGED PRIVATE TRANSPORTATION FOR PATIENT TO GO HOME AND [employer] AND THEN BE TAKEN TO [facility]. PT LEFT UNIT AT 1507. REPORT GIVEN TO NICANOR AT [facility].
--- NOTE | 2018-06-07 17:00 | NUR ---
RN NOTES PER [facility] PATIENT DID NOT HAVE ADMISSION PACKET UPON ARRIVAL. FAXED ALL PAPERWORK TO FACILITY.
== END 2018-06-07 15:00 | DRG 280 ==
LOC: ER 07:11 → TELE 09:10 → MED 06-05 09:06
PROVIDERS: ADMIT Nurse Practitioner Acute Care; ATTEND Nurse Practitioner Acute Care
DX: I11.0 Hypertensive heart disease with heart failure (principal); I21.4 Non-ST elevation (NSTEMI) myocardial infarction; N17.0 Acute kidney failure with tubular necrosis; J18.9 Pneumonia, unspecified organism; D68.59 Other primary thrombophilia; E44.1 Mild protein-calorie malnutrition; J44.0 Chronic obstructive pulmonary disease with (acute) lower respiratory infection; J44.1 Chronic obstructive pulmonary disease with (acute) exacerbation; I48.91 Unspecified atrial fibrillation; I50.33 Acute on chronic diastolic (congestive) heart failure; F32.9 Major depressive disorder, single episode, unspecified; D50.8 Other iron deficiency anemias; Z87.01 Personal history of pneumonia (recurrent); E78.5 Hyperlipidemia, unspecified
CPT/HCPCS: 36415; 71045-TC; 80048-TC; 80053-TC; 80061-TC; 80076-TC; 82728-TC; 83540-TC; 83605-TC; 83735-TC; 83880; 84100-TC; 84484-TC; 85025-TC; 85730-TC; 87040-TC; 87081-TC; 93307-TC; 93970-TC; 94799-TC; 97110-TC; 97116-TC; 97530-TC; A4216; G0378; J1940; J2916; J3490; J7030; J7050; Q9967

== ENCOUNTER 2018-06-29 23:48 | Inpatient (IN) | payer MEDICARE ==
[~2018-06-29] VITALS: Ht 172.7 cm; Wt 69.9 kg
[~2018-06-29 23:48] MED LIST changes: -DOXY100C41 PO; -FLUO-119 PO; +METH4TAB3 PO; -SACU1TAB PO; +VENL75CA62 PO
[2018-06-30] MEDS ORDERED: IV NS 0.9% 500 ML BAG IV ONE
[2018-06-30 00:24] LABS: BASOPHILS % (AUTO) 0.3 % (0.0-2.0); EOSINOPHILS % (AUTO) 0.9 % (0.0-6.0); HEMATOCRIT 28 % (39-51); HEMOGLOBIN 8.9 g/dL (13.5-17.5); LYMPHOCYTES # (AUTO) 0.4 /CMM (0.8-4.8); LYMPHOCYTES % (AUTO) 3.5 % (20.0-44.0); MEAN CORPUSCULAR HGB CONC 32 g/dl (31.0-36.0); MEAN CORPUSCULAR VOLUME 89 fL (80-96); MONOCYTES # (AUTO) 1.1 /CMM (0.1-1.30); MONOCYTES % (AUTO) 9.5 % (2.0-12.0); NEUTROPHILS # (AUTO) 9.8 /CMM (1.8-8.9); NEUTROPHILS % (AUTO) 85.8 % (43.0-81.0); PLATELET COUNT (AUTO) 291 /CMM (150-450); RED BLOOD CELL COUNT(AUTO) 3.11 MIL/uL (4.5-6.0); WHITE BLOOD COUNT (AUTO) 11.4 K/uL (4.3-11.0)
[2018-06-30 00:48] LABS: ALANINE AMINOTRANSFERASE 28 U/L (12-78); ALBUMIN 2.8 g/dL (3.4-5.0); ALKALINE PHOSPHATASE 128 U/L (46-116); ASPARTATE AMINOTRANSFERASE 26 U/L (15-37); BILIRUBIN,DIRECT 0.2 mg/dL (0.0-0.2); BILIRUBIN,TOTAL 0.5 mg/dL (0.2-1.0); CALCIUM, SERUM 8.8 mg/dL (8.5-10.1); CARBON DIOXIDE 30 mmol/L (21-32); CHLORIDE 101 mmol/L (98-107); CREATININE 1.6 mg/dL (0.6-1.3); GLUCOSE 101 mg/dL (74-106); POTASSIUM 4.2 mmol/L (3.5-5.1); SODIUM SERUM 139 mmol/L (136-145); TOTAL PROTEIN, SERUM 6.7 g/dL (6.4-8.2); UREA NITROGEN, BLOOD 32 mg/dL (7-18)
[2018-06-30] MEDS ORDERED: FUROSEMIDE 20 MG/2 ML VIAL IV ONE (02:00)
[2018-06-30] MEDS ORDERED: FUROSEMIDE 20 MG/2 ML VIAL ONE (02:19)
[2018-06-30] MEDS ORDERED: ASPIRIN 81 MG TAB.CHEW PO SCH (03:30)
[2018-06-30 04:00] VITALS: BP 94/62
[2018-06-30] MEDS ORDERED: BUMETANIDE INJ 4 MG in IV NS 0.9% 24 ML IV ONE ×2 (06:30→09:00)
[2018-06-30] MEDS ORDERED: ACETAMINOPHEN 325 MG TABLET PO PRN (06:30)
[2018-06-30] MEDS ORDERED: ONDANSETRON HCL/PF 4 MG/2 ML VIAL IVP PRN (06:30)
[2018-06-30 08:00] VITALS: BP 123/65
[2018-06-30] MEDS: BUPROPION XL 150 MG TAB.ER.24 PO SCH (08:47)
[2018-06-30] MEDS: VENLAFAXINE XR 75 MG CAP.SR.24H PO SCH (08:50)
[2018-06-30] MEDS: DABIGATRAN ETEXILATE MESYLATE 150 MG CAPSULE PO SCH ×2 (08:50→16:55)
[2018-06-30] MEDS ORDERED: AMLODIPINE BESYLATE 5 MG TABLET PO SCH (09:00)
[2018-06-30] MEDS ORDERED: FUROSEMIDE 20 MG TABLET PO SCH (09:00)
[2018-06-30] MEDS ORDERED: POTASSIUM CHLORIDE 20 MEQ TAB.PRT.SR PO SCH (09:00)
[2018-06-30] MEDS ORDERED: METOPROLOL TARTRATE 25 MG TABLET PO SCH (09:00)
[2018-06-30 16:00] VITALS: BP 118/59
[2018-06-30 20:00] VITALS: BP 112/57
[2018-06-30] MEDS: ZOLPIDEM TARTRATE 5 MG TABLET PO PRN (22:40)
[2018-07-01] VITALS (9 sets, daily range): BP systolic 107–135; BP diastolic 46–66
[2018-07-01 03:44] LABS: ABG BASE EXCESS 3.2 mmol/L; ABG OXYGEN SATURATION 99.7 % (92.0-98.5); ABG PCO2 50.1 mmHg (35.0-45.0); ABG PO2 445.5 mmHg (75.0-100.0); AaDO2 217.4 mmHg; COHb 0.9 % (0.5-1.5); MetHb 0.6 % (0.0-1.5); O2Hb 98.2 % (94.0-97.0); SITE, ABG Left Radial
[2018-07-01 06:18] LABS: ALANINE AMINOTRANSFERASE 21 U/L (12-78); ALBUMIN 2.5 g/dL (3.4-5.0); ALKALINE PHOSPHATASE 112 U/L (46-116); ASPARTATE AMINOTRANSFERASE 24 U/L (15-37); BILIRUBIN,TOTAL 0.6 mg/dL (0.2-1.0); CALCIUM, SERUM 8.2 mg/dL (8.5-10.1); CARBON DIOXIDE 28 mmol/L (21-32); CHLORIDE 101 mmol/L (98-107); CREATININE 1.2 mg/dL (0.6-1.3); GLUCOSE 93 mg/dL (74-106); MAGNESIUM 2.1 mg/dL (1.8-2.4); PHOSPHORUS 3.2 mg/dL (2.5-4.9); POTASSIUM 3.7 mmol/L (3.5-5.1); SODIUM SERUM 138 mmol/L (136-145); UREA NITROGEN, BLOOD 22 mg/dL (7-18)
[2018-07-01 06:23] LABS: CHOLESTEROL 108 mg/dL (<200); HDL CHOLESTEROL 46 mg/dL (40-60); LDL 61 mg/dL (0-99); TRIGLYCERIDES 63 mg/dL (30-150)
[2018-07-01 06:24] LABS: BASOPHILS % (AUTO) 0.2 % (0.0-2.0); EOSINOPHILS % (AUTO) 0.5 % (0.0-6.0); HEMATOCRIT 25 % (39-51); HEMOGLOBIN 8.4 g/dL (13.5-17.5); LYMPHOCYTES # (AUTO) 0.3 /CMM (0.8-4.8); LYMPHOCYTES % (AUTO) 2.7 % (20.0-44.0); MEAN CORPUSCULAR HGB CONC 34 g/dl (31.0-36.0); MEAN CORPUSCULAR VOLUME 88 fL (80-96); MONOCYTES # (AUTO) 0.8 /CMM (0.1-1.30); MONOCYTES % (AUTO) 8.1 % (2.0-12.0); NEUTROPHILS # (AUTO) 8.5 /CMM (1.8-8.9); NEUTROPHILS % (AUTO) 88.5 % (43.0-81.0); PLATELET COUNT (AUTO) 214 /CMM (150-450); RED BLOOD CELL COUNT(AUTO) 2.83 MIL/uL (4.5-6.0); WHITE BLOOD COUNT (AUTO) 9.6 K/uL (4.3-11.0)
[2018-07-01] MEDS: BUPROPION XL 150 MG TAB.ER.24 PO SCH (08:21)
[2018-07-01] MEDS: VENLAFAXINE XR 75 MG CAP.SR.24H PO SCH (08:22)
[2018-07-01] MEDS: DABIGATRAN ETEXILATE MESYLATE 150 MG CAPSULE PO SCH ×2 (08:23→16:40)
[2018-07-01] MEDS: FUROSEMIDE 100 MG/10 ML VIAL IV SCH ×3 (08:32→16:40)
[2018-07-01] MEDS: GUAIFENESIN/D-METHORPHAN HB 5 ML UDC PO PRN (20:59)
[2018-07-01] MEDS: ZOLPIDEM TARTRATE 5 MG TABLET PO PRN (22:02)
[2018-07-02] MEDS: GUAIFENESIN/D-METHORPHAN HB 5 ML UDC PO PRN (03:36)
[2018-07-02 06:20] LABS: BASOPHILS % (AUTO) 0.1 % (0.0-2.0); EOSINOPHILS % (AUTO) 0.5 % (0.0-6.0); HEMATOCRIT 27 % (39-51); HEMOGLOBIN 9.1 g/dL (13.5-17.5); LYMPHOCYTES # (AUTO) 0.2 /CMM (0.8-4.8); LYMPHOCYTES % (AUTO) 2.3 % (20.0-44.0); MEAN CORPUSCULAR HGB CONC 34 g/dl (31.0-36.0); MEAN CORPUSCULAR VOLUME 87 fL (80-96); MONOCYTES # (AUTO) 1.2 /CMM (0.1-1.30); MONOCYTES % (AUTO) 11.9 % (2.0-12.0); NEUTROPHILS # (AUTO) 8.9 /CMM (1.8-8.9); NEUTROPHILS % (AUTO) 85.2 % (43.0-81.0); PLATELET COUNT (AUTO) 240 /CMM (150-450); RED BLOOD CELL COUNT(AUTO) 3.09 MIL/uL (4.5-6.0); WHITE BLOOD COUNT (AUTO) 10.5 K/uL (4.3-11.0)
[2018-07-02 06:36] LABS: ALANINE AMINOTRANSFERASE 19 U/L (12-78); ALBUMIN 2.5 g/dL (3.4-5.0); ALKALINE PHOSPHATASE 111 U/L (46-116); ASPARTATE AMINOTRANSFERASE 23 U/L (15-37); BILIRUBIN,TOTAL 0.7 mg/dL (0.2-1.0); CARBON DIOXIDE 33 mmol/L (21-32); CHLORIDE 100 mmol/L (98-107); CREATININE 1.2 mg/dL (0.6-1.3); GLUCOSE 95 mg/dL (74-106); MAGNESIUM 1.9 mg/dL (1.8-2.4); PHOSPHORUS 2.8 mg/dL (2.5-4.9); POTASSIUM 3.4 mmol/L (3.5-5.1); SODIUM SERUM 140 mmol/L (136-145); UREA NITROGEN, BLOOD 18 mg/dL (7-18)
[2018-07-02 08:00] VITALS: BP 135/75
[2018-07-02] MEDS: BUPROPION XL 150 MG TAB.ER.24 PO SCH (08:12)
[2018-07-02] MEDS: VENLAFAXINE XR 75 MG CAP.SR.24H PO SCH (08:12)
[2018-07-02] MEDS: DABIGATRAN ETEXILATE MESYLATE 150 MG CAPSULE PO SCH ×2 (08:13→16:24)
[2018-07-02] MEDS: GUAIFENESIN/CODEINE 10 ML UDC PO PRN ×3 (08:21→21:58)
[2018-07-02] MEDS: POTASSIUM CHLORIDE 20 MEQ TAB.PRT.SR PO SCH ×2 (09:36→11:09)
[2018-07-02] MEDS: methylPREDNISolone SOD SUCC 125 MG/2ML VIAL IV SCH ×3 (11:13→21:58)
[2018-07-02] MEDS: IPRATROPIUM NEB FS 0.5 MG/2.5 ML AMPUL.NEB NEB SCH ×3 (11:20→19:33)
[2018-07-02] MEDS: ALBUTEROL HALF STRENGTH 1.25 MG/3 ML VIAL.NEB NEB SCH ×3 (11:20→19:33)
[2018-07-02] MEDS: ACETYLCYSTEINE 10% SOLN 400 MG/4 ML VIAL NEB SCH ×2 (11:20→16:28)
[2018-07-02] MEDS ORDERED: Z GUARD REMEDY 2 OZ OINT TP PRN (11:30)
[2018-07-02] MEDS: Z GUARD REMEDY 2 OZ OINT TP SCH (11:30)
[2018-07-02 16:00] VITALS: BP 104/81
[2018-07-02 20:00] VITALS: BP 102/63
[2018-07-03] VITALS: BP 129/66
[2018-07-03] MEDS: IPRATROPIUM NEB FS 0.5 MG/2.5 ML AMPUL.NEB NEB SCH ×4 (00:50→20:03)
[2018-07-03] MEDS: ALBUTEROL HALF STRENGTH 1.25 MG/3 ML VIAL.NEB NEB SCH ×4 (00:50→20:03)
[2018-07-03] MEDS: ACETYLCYSTEINE 10% SOLN 400 MG/4 ML VIAL NEB SCH ×4 (00:50→22:54)
[2018-07-03 04:00] VITALS: BP 113/60
[2018-07-03] MEDS: methylPREDNISolone SOD SUCC 125 MG/2ML VIAL IV SCH ×3 (04:31→20:24)
[2018-07-03 06:30] LABS: BASOPHILS % (AUTO) 0.1 % (0.0-2.0); CALCIUM, SERUM 8.7 mg/dL (8.5-10.1); CARBON DIOXIDE 30 mmol/L (21-32); CHLORIDE 100 mmol/L (98-107); GLUCOSE 142 mg/dL (74-106); HEMATOCRIT 26 % (39-51); HEMOGLOBIN 8.5 g/dL (13.5-17.5); LYMPHOCYTES # (AUTO) 0.2 /CMM (0.8-4.8); LYMPHOCYTES % (AUTO) 1.5 % (20.0-44.0); MEAN CORPUSCULAR HGB CONC 33 g/dl (31.0-36.0); MEAN CORPUSCULAR VOLUME 87 fL (80-96); MONOCYTES # (AUTO) 0.3 /CMM (0.1-1.30); MONOCYTES % (AUTO) 3.1 % (2.0-12.0); NEUTROPHILS # (AUTO) 10.4 /CMM (1.8-8.9); NEUTROPHILS % (AUTO) 95.3 % (43.0-81.0); PLATELET COUNT (AUTO) 238 /CMM (150-450); POTASSIUM 3.3 mmol/L (3.5-5.1); RED BLOOD CELL COUNT(AUTO) 2.99 MIL/uL (4.5-6.0); SODIUM SERUM 139 mmol/L (136-145); UREA NITROGEN, BLOOD 21 mg/dL (7-18); WHITE BLOOD COUNT (AUTO) 10.9 K/uL (4.3-11.0)
[2018-07-03 08:00] VITALS: BP 114/73
[2018-07-03] MEDS: Z GUARD REMEDY 2 OZ OINT TP SCH (08:53)
[2018-07-03] MEDS: BUPROPION XL 150 MG TAB.ER.24 PO SCH (08:57)
[2018-07-03] MEDS: VENLAFAXINE XR 75 MG CAP.SR.24H PO SCH (08:58)
[2018-07-03] MEDS: DILTIAZEM HCL CD 240 MG PO SCH (08:58)
[2018-07-03] MEDS: POTASSIUM CHLORIDE 20 MEQ TAB.PRT.SR PO SCH ×2 (08:59→09:53)
[2018-07-03] MEDS: DABIGATRAN ETEXILATE MESYLATE 150 MG CAPSULE PO SCH ×2 (09:03→16:55)
[2018-07-03 16:00] VITALS: BP 103/43
[2018-07-03 20:00] VITALS: BP 98/54
[2018-07-03 20:08] VITALS: BP 98/54
[2018-07-04] MEDS: GUAIFENESIN/CODEINE 10 ML UDC PO PRN ×3 (00:29→14:30)
[2018-07-04] MEDS: ALBUTEROL HALF STRENGTH 1.25 MG/3 ML VIAL.NEB NEB SCH ×3 (01:04→14:16)
[2018-07-04] MEDS: IPRATROPIUM NEB FS 0.5 MG/2.5 ML AMPUL.NEB NEB SCH ×3 (01:04→14:16)
[2018-07-04] MEDS: methylPREDNISolone SOD SUCC 125 MG/2ML VIAL IV SCH (05:00)
[2018-07-04 08:00] VITALS: BP 100/51
[2018-07-04 08:07] VITALS: BP 112/66
[2018-07-04] MEDS: ACETYLCYSTEINE 10% SOLN 400 MG/4 ML VIAL NEB SCH ×2 (08:09→14:40)
[2018-07-04 08:30] VITALS: BP 111/74
[2018-07-04] MEDS: BUPROPION XL 150 MG TAB.ER.24 PO SCH (08:30)
[2018-07-04] MEDS: DILTIAZEM HCL CD 240 MG PO SCH (08:30)
[2018-07-04] MEDS: VENLAFAXINE XR 75 MG CAP.SR.24H PO SCH (08:31)
[2018-07-04] MEDS: DABIGATRAN ETEXILATE MESYLATE 150 MG CAPSULE PO SCH (08:32)
[2018-07-04] MEDS: Z GUARD REMEDY 2 OZ OINT TP SCH (09:00)
[2018-07-04 09:28] LABS: ABG BASE EXCESS 4.7 mmol/L; ABG OXYGEN SATURATION 90.6 % (92.0-98.5); ABG PCO2 33.2 mmHg (35.0-45.0); ABG PH 7.534 (7.350-7.450); ABG PO2 57.5 mmHg (75.0-100.0); AaDO2 52.5 mmHg; MetHb 0.2 % (0.0-1.5); O2Hb 89.5 % (94.0-97.0); SITE, ABG Right Radial; VENT MODE, BG Room Air
[2018-07-04] MEDS ORDERED: DIGOXIN INJ 0.5 MG/2 ML AMPUL IV SCH (12:00)
[2018-07-05] MEDS ORDERED: methylPREDNISolone SOD SUCC 40 MG/ML VIAL IV SCH (09:00)
== END 2018-07-04 15:38 | DRG 280 ==
LOC: ER 23:52 → TELE 06-30 02:15 → MED 07-01 08:36
PROVIDERS: ADMIT Family Medicine; ATTEND Family Medicine
DX: I13.0 Hypertensive heart and chronic kidney disease with heart failure and stage 1 through stage 4 chronic kidney disease, or unspecified chronic kidney disease (principal); I50.33 Acute on chronic diastolic (congestive) heart failure; I21.A1 Myocardial infarction type 2; N17.0 Acute kidney failure with tubular necrosis; J96.22 Acute and chronic respiratory failure with hypercapnia; D68.59 Other primary thrombophilia; J84.9 Interstitial pulmonary disease, unspecified; J44.1 Chronic obstructive pulmonary disease with (acute) exacerbation; E44.1 Mild protein-calorie malnutrition; N18.9 Chronic kidney disease, unspecified; I48.91 Unspecified atrial fibrillation; Z98.890 Other specified postprocedural states; Z87.891 Personal history of nicotine dependence; Z79.02 Long term (current) use of antithrombotics/antiplatelets; I27.20 Pulmonary hypertension, unspecified; F32.9 Major depressive disorder, single episode, unspecified; Z79.899 Other long term (current) drug therapy; D72.829 Elevated white blood cell count, unspecified; E78.5 Hyperlipidemia, unspecified; D63.8 Anemia in other chronic diseases classified elsewhere
CPT/HCPCS: 36415; 36600; 70450-TC; 71045-TC; 80048-TC; 80053-TC; 80061-TC; 80076-TC; 82803-TC; 82962-TC; 83735-TC; 83880; 84100-TC; 84484-TC; 85025-TC; 85730-TC; 86850-TC; 87081-TC; 94799-TC; 97110-TC; 97116-TC; 97530-TC; G0378; J1160; J1940; J2930; J3490; J7030; J7040; J7050